=== PATIENT | male | born 1965 | race Caucasian/White ===

== ENCOUNTER 2018-06-28 23:55 | Inpatient (IN) | payer SELFPAY ==
[~2018-06-28] VITALS: Ht 177.8 cm; Wt 96.8 kg
[2018-06-29 02:36] LABS: Basophils # (auto) 0.1 uL; Eosinophils # (auto) 0.5 uL; Eosinophils % (auto) 5.2 % (0.0-7.0); Hematocrit 41.6 % (41.0-53.0); Hemoglobin 14.2 g/dL (13.5-17.5); Lymphocytes # (auto) 1.6 uL; Lymphocytes % (auto) 17.5 % (10.0-50.0); Mean Corpuscular Hemoglobin 32.9 pg (28.0-32.0); Mean Corpuscular Hgb Conc. 34.2 g/dL (32.0-36.0); Mean Corpuscular Volume 96.3 fL (80.0-100.0); Monocytes # (auto) 0.8 uL; Monocytes % (auto) 8.8 % (0.0-12.0); Neutrophils # (auto) 6.3 uL; Neutrophils % (auto) 67.5 % (37.0-80.0); Nucleated Red Blood Cells % 0.1 %; Platelet Count (auto) 260 10^3/uL (140-450); Red Blood Cells 4.33 10^6/uL (4.5-5.90); Red Cell Distribution Width 13.7 % (11.8-14.3); White Blood Cell 9.3 10^3/uL (4.4-10.8)
[2018-06-29 02:52] LABS: Albumin 3.6 g/dL (3.4-5.0); Potassium 4.3 mmol/L (3.5-5.1)
[2018-06-29 02:54] LABS: BUN/Creatinine Ratio 17.3; Calcium 8.9 mg/dL (8.5-10.1)
[2018-06-29 02:57] LABS: Bilirubin, Total 0.2 mg/dL (0.2-1.0); Total Protein 7.9 g/dL (6.4-8.2)
[2018-06-29] MEDS ORDERED: SODIUM CHLORIDE 0.9% 1,000 ML IV ONE (05:30)
[2018-06-29] MEDS ORDERED: KETOROLAC TROMETH 30 MG/ML 1ML VIAL IV ONE (05:30)
[2018-06-29] MEDS ORDERED: CLINDAMYCIN 900MG IV 50 ML IV ONE (05:30)
[2018-06-29] MEDS ORDERED: ONDANSETRON HCL 4 MG/2 ML VIAL IV PRN (06:00)
[2018-06-29] MEDS ORDERED: ACETAMINOPHEN 325 MG TAB PO PRN (06:00)
[2018-06-29] MEDS: cefTRIAXone 1GM/50ML D5W 50 ML IV SCH (06:45)
--- NOTE | 2018-06-29 08:30 | NUR ---
PT ADMITTED TO FLOOR, NO DISTRESS NOTED. PT ORIENTED TO FLOOR AND CALL LIGHT. PT REPORTS HE IS HUNGRY, SANDWICH AND MILK BROUGHT. PT REPORTS HE IS IN 8/10 PAIN IN LEFT LEG, PRN PAIN MEDICATION GIVEN. VITALS: T 97.5, 02 97, HR 85, BP 122/70, RR 12. WILL CONTINUE TO MONITOR.
[2018-06-29 09:12] VITALS: BP 122/70
[2018-06-29] MEDS: FAMOTIDINE 20 MG TAB PO SCH ×2 (09:30→21:51)
[2018-06-29] MEDS: HYDROcodone-ACET 5/325MG TAB PO PRN ×2 (09:30→20:27)
[2018-06-29 13:03] VITALS: BP 127/69
[2018-06-29] MEDS: CLINDAMYCIN 600MG IV 50 ML IV SCH ×2 (14:34→21:50)
[2018-06-29] MEDS: SODIUM CHLORIDE 0.9% 1,000 ML IV SCH (16:22)
--- NOTE | 2018-06-29 16:35 | NUR ---
PICTURES OF LEFT KNEE TAKEN. PT REPORTS HE WANTS TO GO OUTSIDE TO SMOKE. PT EDUCATED THAT SMOKING IS AGAINST MEDICAL ADVICE, PT VERBALIZED UNDERSTANDING. PT SIGNED AMA, PLACED IN CHART. REQUESTED URINE SAMPLE FROM PT, PT AGREED, CUP AT BEDSIDE. WILL CONTINUE TO MONITOR.
[2018-06-29 17:01] VITALS: BP 139/83
[2018-06-29 20:20] LABS: Alcohol, Urine < 3.0 mg/dL (0-5); Amphetamine Screen, Urine POSITIVE (NEGATIVE); Barbiturate Scree,Urine NEGATIVE (NEGATIVE); Benzodiazephine Screen, Urine NEGATIVE (NEGATIVE); Cannabinoid Screen, Urine POSITIVE (NEGATIVE); Cocaine Screen, Urine NEGATIVE (NEGATIVE); Opiate Scree,Urine NEGATIVE (NEGATIVE); Phencyclidine Screen, Urine NEGATIVE (NEGATIVE)
[2018-06-29 22:09] VITALS: BP 134/73
[2018-06-30 04:55] VITALS: BP 139/79
--- NOTE | 2018-06-30 05:25 | NUR ---
PATIENT WENT OUT TO SMOKE, SIGNED AMA IN THE CHART.
[2018-06-30] MEDS: cefTRIAXone 1GM/50ML D5W 50 ML IV SCH (05:52)
[2018-06-30 06:33] LABS: Basophils # (auto) 0.1 uL; Basophils % (auto) 1.2 % (0.0-2.0); Eosinophils # (auto) 0.5 uL; Eosinophils % (auto) 7.9 % (0.0-7.0); Hematocrit 38.1 % (41.0-53.0); Hemoglobin 12.8 g/dL (13.5-17.5); Lymphocytes # (auto) 1.5 uL; Lymphocytes % (auto) 24.3 % (10.0-50.0); Mean Corpuscular Hemoglobin 32.3 pg (28.0-32.0); Mean Corpuscular Hgb Conc. 33.5 g/dL (32.0-36.0); Mean Corpuscular Volume 96.5 fL (80.0-100.0); Monocytes # (auto) 0.5 uL; Monocytes % (auto) 8.4 % (0.0-12.0); Neutrophils # (auto) 3.6 uL; Neutrophils % (auto) 58.2 % (37.0-80.0); Nucleated Red Blood Cells % 0.4 %; Platelet Count (auto) 206 10^3/uL (140-450); Red Blood Cells 3.95 10^6/uL (4.5-5.90); Red Cell Distribution Width 13.6 % (11.8-14.3); White Blood Cell 6.2 10^3/uL (4.4-10.8)
[2018-06-30] MEDS: CLINDAMYCIN 600MG IV 50 ML IV SCH ×3 (06:39→22:00)
[2018-06-30 06:48] LABS: BUN/Creatinine Ratio 24.5; Potassium 4.1 mmol/L (3.5-5.1)
--- NOTE | 2018-06-30 08:05 | NUR ---
RE: SURGICAL CONSULT SPOKE WITH DR. VIEIRA STATED THEY DON'T PRACTICE ON EXTREMITIES, WILL NOT SEE PATIENTS, SUGGESTED A PODIATRIC AND ULTRA SOUND OF THE EXTREMITY. WILL NOTIFY HOSPITALIST FOR THE INFORMATION.
[2018-06-30 09:10] VITALS: BP 140/82
[2018-06-30] MEDS: FAMOTIDINE 20 MG TAB PO SCH ×2 (11:00→20:56)
[2018-06-30] MEDS: SODIUM CHLORIDE 0.9% 1,000 ML IV SCH (11:01)
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
[2018-06-30] MEDS: HYDROcodone-ACET 5/325MG TAB PO PRN ×2 (11:27→20:56)
[2018-06-30 13:00] VITALS: BP 130/96
[2018-06-30 17:05] VITALS: BP 127/85
--- NOTE | 2018-06-30 19:02 | NUR ---
RE: CONSULT DR. VAIL AT BEDSIDE DISCUSSING PLAN OF CARE. DRESSING CHANGED.
[2018-06-30 21:30] VITALS: BP 151/79
[2018-06-30 22:47] LABS: INR 0.91 (0.9-1.15); Prothrombin Time 9.8 sec (9.27-12.13)
[2018-07-01] MEDS: SODIUM CHLORIDE 0.9% 1,000 ML IV SCH ×2 (00:20→17:38)
[2018-07-01] MEDS: CLINDAMYCIN 600MG IV 50 ML IV SCH ×3 (04:01→21:24)
[2018-07-01 05:18] VITALS: BP 137/86
[2018-07-01] MEDS: cefTRIAXone 1GM/50ML D5W 50 ML IV SCH (05:19)
[2018-07-01 06:10] LABS: Basophils # (auto) 0.1 uL; Basophils % (auto) 1.2 % (0.0-2.0); Eosinophils # (auto) 0.6 uL; Eosinophils % (auto) 8.2 % (0.0-7.0); Hematocrit 40.8 % (41.0-53.0); Hemoglobin 13.6 g/dL (13.5-17.5); Lymphocytes # (auto) 1.8 uL; Lymphocytes % (auto) 24.9 % (10.0-50.0); Mean Corpuscular Hemoglobin 32.1 pg (28.0-32.0); Mean Corpuscular Hgb Conc. 33.4 g/dL (32.0-36.0); Monocytes # (auto) 0.6 uL; Neutrophils # (auto) 4.1 uL; Neutrophils % (auto) 56.7 % (37.0-80.0); Nucleated Red Blood Cells % 0.2 %; Platelet Count (auto) 261 10^3/uL (140-450); Red Blood Cells 4.25 10^6/uL (4.5-5.90); Red Cell Distribution Width 13.6 % (11.8-14.3); White Blood Cell 7.2 10^3/uL (4.4-10.8)
[2018-07-01 06:22] LABS: Potassium 4.3 mmol/L (3.5-5.1)
[2018-07-01 06:28] LABS: BUN/Creatinine Ratio 16.5; Calcium 8.4 mg/dL (8.5-10.1)
--- NOTE | 2018-07-01 06:30 | NUR ---
PATIENT WENT OUT TO GET SOME AIR, INSTRUCTED TO REMAIN NPO, COME BACK NOT LATER THAN 30MIN. CONSENTS SIGNED, PREO CHECKLIST INITIATED.
[2018-07-01] MEDS ORDERED: MEPERIDINE HCL (50 MG/ML) 1 ML VIAL ONE (08:24)
[2018-07-01] MEDS ORDERED: fentaNYL CITRATE 100 MCG/2 ML VL ONE (08:24)
[2018-07-01] MEDS ORDERED: MIDAZOLAM HCL 1MG/1ML-2 ML VIAL ONE (08:24)
[2018-07-01] MEDS ORDERED: PROPOFOL 10 MG/ML 20 ML IV ONE (08:26)
[2018-07-01] MEDS ORDERED: DexAMETHasone SOD PHOS 10MG/1ML VIAL INJ ONE (08:26)
--- NOTE | 2018-07-01 08:30 | NUR ---
PATIENT OFF THE UNIT.
[2018-07-01] MEDS ORDERED: KETOROLAC TROMETH 30 MG/ML 1ML VIAL IV ONE (08:45)
[2018-07-01] MEDS ORDERED: MIDAZOLAM HCL 1MG/1ML-2 ML VIAL IV PRN (08:45)
[2018-07-01] MEDS ORDERED: ePHEDrine SULFATE 50 MG/ML AMP IV PRN (08:45)
[2018-07-01] MEDS ORDERED: ONDANSETRON HCL 4 MG/2 ML VIAL IV ONE (08:45)
[2018-07-01] MEDS ORDERED: HYDROmorphone HCL 2 MG/ML VL IV PRN (08:45)
[2018-07-01] MEDS ORDERED: LABETALOL HCL 5 MG/ML 4ML SYRINGE IV PRN (08:45)
[2018-07-01 09:00] VITALS: BP 136/85
--- NOTE | 2018-07-01 09:15 | NUR ---
RE: CALL RECEIVED CALLED FROM LAB STATING OF THE MRSA ON THE PATIENT WOUND. INFORMED OF THE APPROPRIATE PERSONAL OF THE INFORMATION.
[2018-07-01] MEDS ORDERED: KETOROLAC TROMETH 30 MG/ML 1ML VIAL ONE (09:31)
[2018-07-01] MEDS ORDERED: MORPHINE SULFATE 4 MG/ML SYR/VIAL IV ONE (10:00)
[2018-07-01] MEDS: FAMOTIDINE 20 MG TAB PO SCH ×2 (10:00→21:24)
[2018-07-01] MEDS ORDERED: HYDROcodone-ACET 10/325MG TAB PO PRN (10:15)
--- NOTE | 2018-07-01 12:38 | NUR ---
Nutrition Assessment/consult Notes please see attached link for complete assessment Est. Needs ABW [id number] kcal (23-25 kcal/kgBW), 85-102 gms pro (1.0-1.2 gms/kgBW r/t wounds). Will continue to monitor pertinent labs and reassess nutrient need prn Addendum: 07/01/18 at [address] Amended: Links added.
[2018-07-01 13:00] VITALS: BP 140/87
--- NOTE | 2018-07-01 14:05 | NUR ---
patient back on the unit.
[2018-07-01] MEDS: HYDROmorphone HCL 2 MG/ML VL IV PRN ×2 (15:37→20:54)
[2018-07-01 17:00] VITALS: BP 143/103
--- NOTE | 2018-07-01 19:35 | NUR ---
Opening Shift Note Assumed care of patient, awake and alert. No S/S of distress/SOB. Dressing to left knee moderately soaked. Instructed on POC and to call for assist PRN, instructed to not put weight on left leg, patient verbalized understanding, call light within reach, will continue to monitor for changes Q1hr and PRN.
--- NOTE | 2018-07-01 20:30 | NUR ---
Dressing to left knee moderately soaked, changed dressing with 4x4 gauze pads and covered with kerlix, patient tolerated well
--- NOTE | 2018-07-01 20:45 | NUR ---
Patient needed to be on Iso for (+) MRSA in the wound. Transferred patient to [facility] with all personal belongings via wheelchair. Will continue to monitor
[2018-07-01 22:00] VITALS: BP 158/86
[2018-07-02 05:00] VITALS: BP 116/81
[2018-07-02] MEDS: HYDROmorphone HCL 2 MG/ML VL IV PRN ×4 (05:06→20:58)
[2018-07-02] MEDS: CLINDAMYCIN 600MG IV 50 ML IV SCH ×3 (05:07→21:56)
[2018-07-02 05:10] LABS: Basophils # (auto) 0 uL; Basophils % (auto) 0.3 % (0.0-2.0); Eosinophils # (auto) 0.1 uL; Eosinophils % (auto) 0.8 % (0.0-7.0); Hematocrit 41.2 % (41.0-53.0); Hemoglobin 13.6 g/dL (13.5-17.5); Lymphocytes # (auto) 1.4 uL; Lymphocytes % (auto) 10.7 % (10.0-50.0); Mean Corpuscular Hemoglobin 31.7 pg (28.0-32.0); Mean Corpuscular Volume 96.1 fL (80.0-100.0); Monocytes # (auto) 0.8 uL; Monocytes % (auto) 6.3 % (0.0-12.0); Neutrophils # (auto) 10.6 uL; Neutrophils % (auto) 81.9 % (37.0-80.0); Platelet Count (auto) 287 10^3/uL (140-450); Red Blood Cells 4.28 10^6/uL (4.5-5.90); Red Cell Distribution Width 13.6 % (11.8-14.3); White Blood Cell 12.9 10^3/uL (4.4-10.8)
[2018-07-02 05:30] LABS: BUN/Creatinine Ratio 15.2; Calcium 8.6 mg/dL (8.5-10.1); Potassium 4.1 mmol/L (3.5-5.1)
[2018-07-02] MEDS: cefTRIAXone 1GM/50ML D5W 50 ML IV SCH (06:21)
--- NOTE | 2018-07-02 08:00 | NUR ---
Opening Shift Note Assumed care of patient, awake and alert. No S/S of distress/SOB. Instructed on POC and to call for assist PRN, will continue to monitor for changes Q1hr and PRN.
[2018-07-02 09:00] VITALS: BP 150/82
[2018-07-02] MEDS: FAMOTIDINE 20 MG TAB PO SCH ×2 (09:27→21:55)
[2018-07-02] MEDS: SODIUM CHLORIDE 0.9% 1,000 ML IV SCH (09:27)
[2018-07-02 12:45] VITALS: BP 134/94
[2018-07-02 16:26] VITALS: BP 148/94
--- NOTE | 2018-07-02 18:29 | NUR ---
DRESSING CHANGE DRESSING CHANGE DONE TO LEFT KNEE. REMOVED OLD DRESSING. SEROSANGUINOUS DRAINAGE PRESENT. APPLIED 4X4 GAUZE AND WRAPPED WITH KERLIX, SECURED WITH MEDIPORE TAPE.
[2018-07-02] MEDS: TEMAZEPAM 15 MG CAP PO PRN (21:56)
[2018-07-02 22:00] VITALS: BP 141/82
--- NOTE | 2018-07-02 23:23 | NUR ---
Opening Shift Note Assumed care of patient, awake and alert oriented x4. No S/S of distress/SOB noted. Bed is in lowest locked position with bed rails up x2 and call light is within reach of the patient. Instructed on POC and to call for assist PRN. Also instructed patient that he must be NPO after midnight. Patient verbalized understanding. Addendum: 07/02/18 at 7375 by Kiersten Ko RN RN incorrect time: time meant for 1929
[2018-07-03] MEDS: SODIUM CHLORIDE 0.9% 1,000 ML IV SCH ×2 (02:20→18:45)
[2018-07-03] MEDS: HYDROmorphone HCL 2 MG/ML VL IV PRN ×4 (05:17→20:38)
[2018-07-03] MEDS: cefTRIAXone 1GM/50ML D5W 50 ML IV SCH (05:17)
[2018-07-03 05:18] VITALS: BP 128/81
[2018-07-03] MEDS: CLINDAMYCIN 600MG IV 50 ML IV SCH ×3 (05:18→21:32)
[2018-07-03 05:24] LABS: Basophils # (auto) 0.1 uL; Eosinophils # (auto) 0.5 uL; Eosinophils % (auto) 5.8 % (0.0-7.0); Hematocrit 42.3 % (41.0-53.0); Hemoglobin 14.1 g/dL (13.5-17.5); Lymphocytes # (auto) 2.7 uL; Lymphocytes % (auto) 30.6 % (10.0-50.0); Mean Corpuscular Hgb Conc. 33.4 g/dL (32.0-36.0); Mean Corpuscular Volume 95.9 fL (80.0-100.0); Monocytes # (auto) 0.7 uL; Monocytes % (auto) 8.1 % (0.0-12.0); Neutrophils # (auto) 4.8 uL; Neutrophils % (auto) 54.5 % (37.0-80.0); Nucleated Red Blood Cells % 0.1 %; Platelet Count (auto) 281 10^3/uL (140-450); Red Blood Cells 4.41 10^6/uL (4.5-5.90); Red Cell Distribution Width 13.7 % (11.8-14.3); White Blood Cell 8.8 10^3/uL (4.4-10.8)
[2018-07-03 08:00] VITALS: BP 154/77
[2018-07-03 09:00] VITALS: BP 154/77
[2018-07-03] MEDS: FAMOTIDINE 20 MG TAB PO SCH ×2 (10:10→21:32)
[2018-07-03 13:00] VITALS: BP 118/80
[2018-07-03 17:10] VITALS: BP 137/93
[2018-07-03] MEDS ORDERED: fentaNYL CITRATE 100 MCG/2 ML VL ONE (17:12)
[2018-07-03] MEDS ORDERED: ONDANSETRON HCL 4 MG/2 ML VIAL ONE (17:12)
[2018-07-03] MEDS ORDERED: MIDAZOLAM HCL 1MG/1ML-2 ML VIAL ONE (17:12)
[2018-07-03] MEDS ORDERED: SODIUM CHLORIDE LOCK 0 ML ONE (17:12)
[2018-07-03] MEDS ORDERED: PROPOFOL 10 MG/ML 20 ML IV ONE (17:12)
--- NOTE | 2018-07-03 18:00 | NUR ---
patient off floor transported pt off floor to PACU for procedure
--- NOTE | 2018-07-03 18:49 | NUR ---
REC'D REPORT FROM PACU PATIENT COULD NOT HAVE PROCEDURE, PT REPORTED EATING SOME GUMMY WORMS ABOUT [phone], ANESTHESIOLOGIST AND SURGEON WILL ATTEMPT PROCEDURE AGAIN ON MONDAY
--- NOTE | 2018-07-03 19:30 | NUR ---
Opening Shift Note Assumed care of patient, awake and alert oriented x4. No S/S of distress/SOB noted. Bed is in lowest locked position with bed rails up x2 and call light is within reach of the patient. Instructed on POC and to call for assist PRN.
[2018-07-03] MEDS: TEMAZEPAM 15 MG CAP PO PRN (21:32)
[2018-07-03 21:38] VITALS: BP 148/88
[2018-07-04 05:00] VITALS: BP 123/78
[2018-07-04] MEDS: CLINDAMYCIN 600MG IV 50 ML IV SCH ×3 (05:33→21:42)
[2018-07-04] MEDS: cefTRIAXone 1GM/50ML D5W 50 ML IV SCH (05:33)
[2018-07-04] MEDS: HYDROmorphone HCL 2 MG/ML VL IV PRN ×2 (05:34→10:06)
[2018-07-04 06:18] LABS: Basophils # (auto) 0.1 uL; Eosinophils # (auto) 0.6 uL; Eosinophils % (auto) 7.5 % (0.0-7.0); Hematocrit 41.2 % (41.0-53.0); Hemoglobin 13.9 g/dL (13.5-17.5); Lymphocytes # (auto) 2.1 uL; Lymphocytes % (auto) 27.2 % (10.0-50.0); Mean Corpuscular Hemoglobin 32.5 pg (28.0-32.0); Mean Corpuscular Hgb Conc. 33.7 g/dL (32.0-36.0); Mean Corpuscular Volume 96.3 fL (80.0-100.0); Monocytes # (auto) 0.7 uL; Neutrophils # (auto) 4.2 uL; Neutrophils % (auto) 55.3 % (37.0-80.0); Nucleated Red Blood Cells % 0.5 %; Platelet Count (auto) 250 10^3/uL (140-450); Red Blood Cells 4.28 10^6/uL (4.5-5.90); Red Cell Distribution Width 13.6 % (11.8-14.3); White Blood Cell 7.6 10^3/uL (4.4-10.8)
[2018-07-04 08:00] VITALS: BP 126/77
[2018-07-04 08:46] VITALS: BP 126/77
[2018-07-04] MEDS: FAMOTIDINE 20 MG TAB PO SCH ×2 (10:05→21:27)
[2018-07-04] MEDS: SODIUM CHLORIDE 0.9% 1,000 ML IV SCH ×2 (10:05→18:00)
[2018-07-04 13:00] VITALS: BP 133/87
[2018-07-04] MEDS: HYDROcodone-ACET 10/325MG TAB PO PRN ×3 (14:42→22:36)
[2018-07-04 17:00] VITALS: BP 149/88
--- NOTE | 2018-07-04 18:45 | NUR ---
END OF SHIFT NOTE PT GIVEN PAIN MEDICATION, EDUCATED TO NOT EAT AFTER MIDNIGHT, PT VERBALIZED UNDERSTANDING, MD WAS AT BEDSIDE AND EXPLAINED PT WILL HAVE PROCEDURE AT 0830 TOMORROW, PT JUST FINISHED EATING 100% OF DINNER, SIDE RAILS UP X2, BED IN LOWEST LOCKED POSITION, CALL LIGHT IN REACH, CARE ENDORSED TO NIGHTSHIFT RN
--- NOTE | 2018-07-04 19:25 | NUR ---
RECEIVED PATIENT LYING IN BED, AWAKE, ALERT, ORIENTED X4, WITH FAMILY AT BEDSIDE. NO S/S OF RESPIRATORY DISTRESS, DENIES SOB AND CHEST PAIN. ORIENTED ON PLAN OF CARE. BED IS LOCKED AND IN LOWEST LEVEL, SIDE RAILS UP X2, CALL LIGHT WITHIN REACH. WILL CONTINUE TO MONITOR
[2018-07-04] MEDS: TEMAZEPAM 15 MG CAP PO PRN (21:27)
[2018-07-04 22:00] VITALS: BP 131/83
[2018-07-05 05:00] VITALS: BP 120/78
[2018-07-05] MEDS: HYDROcodone-ACET 10/325MG TAB PO PRN (05:27)
[2018-07-05] MEDS: CLINDAMYCIN 600MG IV 50 ML IV SCH ×2 (05:28→14:00)
[2018-07-05 06:12] LABS: INR 0.94 (0.9-1.15); Partial Thromboplastin Time 26.1 sec (23.78-33.04); Prothrombin Time 10.1 sec (9.27-12.13)
[2018-07-05 06:19] LABS: BUN/Creatinine Ratio 22.6; Calcium 8.5 mg/dL (8.5-10.1); Potassium 4.4 mmol/L (3.5-5.1)
--- NOTE | 2018-07-05 07:22 | NUR ---
CARE ENDORSED TO AM SHIFT RN
[2018-07-05] MEDS: SODIUM CHLORIDE 0.9% 1,000 ML IV SCH (07:45)
[2018-07-05 08:44] VITALS: BP 121/74
--- NOTE | 2018-07-05 09:00 | NUR ---
UA SENT TO LAB.
--- NOTE | 2018-07-05 09:00 | NUR ---
Patient left unit to OR.
[2018-07-05] MEDS ORDERED: HYDROmorphone HCL 2 MG/ML VL IV PRN (09:30)
[2018-07-05] MEDS ORDERED: ePHEDrine SULFATE 50 MG/ML AMP IV PRN (09:30)
[2018-07-05] MEDS ORDERED: KETOROLAC TROMETH 30 MG/ML 1ML VIAL IV ONE (09:30)
[2018-07-05] MEDS ORDERED: LABETALOL HCL 5 MG/ML 4ML SYRINGE IV PRN (09:30)
[2018-07-05] MEDS ORDERED: ONDANSETRON HCL 4 MG/2 ML VIAL IV ONE (09:30)
[2018-07-05] MEDS ORDERED: hydrALAZINE HCL 20 MG/ML VL IV PRN (09:30)
[2018-07-05] MEDS ORDERED: MIDAZOLAM HCL 1MG/1ML-2 ML VIAL ONE (09:31)
[2018-07-05] MEDS ORDERED: fentaNYL CITRATE 100 MCG/2 ML VL ONE (09:31)
[2018-07-05] MEDS ORDERED: PROPOFOL 10 MG/ML 20 ML IV ONE (09:34)
[2018-07-05] MEDS ORDERED: MEPERIDINE HCL (50 MG/ML) 1 ML VIAL ONE (09:34)
[2018-07-05] MEDS ORDERED: DexAMETHasone SOD PHOS 10MG/1ML VIAL INJ ONE (09:34)
[2018-07-05] MEDS ORDERED: ceFAZolin 1GM/50ML 50 ML IV ONE (09:36)
[2018-07-05] MEDS: FAMOTIDINE 20 MG TAB PO SCH (09:48)
[2018-07-05] MEDS ORDERED: MORPHINE SULFATE 4 MG/ML SYR/VIAL IV ONE (10:00)
--- NOTE | 2018-07-05 11:37 | NUR ---
Patient came back to the floor, dressing to left knee, intact, dry, no drainage noted.
[2018-07-05] MEDS ORDERED: SACC250C PO (11:45)
[2018-07-05] MEDS ORDERED: CLIN1CAP4 PO (11:45)
[2018-07-05] MEDS ORDERED: TRAM50TA2 PO (13:06)
[2018-07-05 13:48] VITALS: BP 121/74
[2018-07-05 14:20] VITALS: BP 128/93
--- NOTE | 2018-07-05 14:25 | NUR ---
Discharge instructions given as ordered. Encourage to follow up with PMD (Patient has NO PCP and No insurance or ER medi-miguel Patient should be referred to [facility] Urgent Care 8AM-8PM.#[phone] Ext [phone]. Address : [address] [place] [address], , [phone] Provide urgent care coupon 45$. Follow up with Dr. Sparks in 1 week [address], [place] [address] )as instructed. All questions and concerns addressed. Patient verbalized understanding. Medication reconciliation form completed and copy given to patient. IV removed with catheter intact, pressure dressing applied. Patient taken to vehicle via wheelchair with all personal belongings, accompanied by staff and family member. No distress noted at time of departure.
== END 2018-07-05 14:25 | disposition home or self-care (01) | DRG 463 ==
LOC: ER 23:55 → OVERFLOW 06-29 05:50 → CENTRAL 06-29 08:46
PROVIDERS: ADMIT Nurse Practitioner; ATTEND Internal Medicine
PROC: 0JBM0ZZ Excision of Left Upper Leg Subcutaneous Tissue and Fascia, Open Approach (ICD-10-PCS; 2018-07-01)
PROC: 0MBP0ZZ Excision of Left Knee Bursa and Ligament, Open Approach (ICD-10-PCS; principal; 2018-07-01 08:30)
DX: M70.42 Prepatellar bursitis, left knee (principal); N17.0 Acute kidney failure with tubular necrosis; L03.115 Cellulitis of right lower limb; L03.116 Cellulitis of left lower limb; L02.416 Cutaneous abscess of left lower limb; E66.9 Obesity, unspecified; F12.90 Cannabis use, unspecified, uncomplicated; D63.8 Anemia in other chronic diseases classified elsewhere; E78.5 Hyperlipidemia, unspecified; F15.10 Other stimulant abuse, uncomplicated; I12.9 Hypertensive chronic kidney disease with stage 1 through stage 4 chronic kidney disease, or unspecified chronic kidney disease; N18.9 Chronic kidney disease, unspecified; A49.02 Methicillin resistant Staphylococcus aureus infection, unspecified site; Z68.30 Body mass index [BMI] 30.0-30.9, adult; Z72.0 Tobacco use
CPT/HCPCS: 36415; 71045; 73700; 80048; 80053; 80061; 80307; 83735; 85025; 85610; 85730; 86141; 86850; 86900; 86901; 87040; 87070; 87075; 87077; 87186; 87205; 94761; 96365; 96366; 96375; G0378; J0690; J0696; J1100; J1885; J2250; J2405; J2704; J3490

== ENCOUNTER 2018-07-16 14:50 | Emergency (ER) | payer SELFPAY ==
[~2018-07-16] VITALS: Ht 177.8 cm; Wt 93.0 kg
[~2018-07-16 14:50] MED LIST: CLIN1CAP4 PO; SACC250C PO; TRAM50TA2 PO
[2018-07-16 16:59] VITALS: BP 116/78
== END 2018-07-16 17:13 | disposition home or self-care (01) ==
LOC: ER 14:50
DX: M70.42 Prepatellar bursitis, left knee (principal)